=== PATIENT | female | born 1950 | race Caucasian/White ===

== ENCOUNTER 2019-01-23 07:18 | Day surgery (SDC) | payer OTHER ==
[2019-01-22 09:03] VITALS: BMI 36.3
--- NOTE | 2019-01-23 08:01 | HP ---
[facility] - Chief Complaint Chief Complaint: R KNEE PAIN History Source: Patient - Past Medical History Allergies/Adverse Reactions: Allergies Allergy/AdvReac Type Severity Reaction Status Date / Time levothyroxine Allergy "throat Verified 01/23/19 07:51 closes" - Current Medications Current Medications: Home Medications Medication Instructions Recorded Gabapentin 1,800 mg PO BID 01/22/19 Levothyroxine [Synthroid -] 125 mcg PO DAILY 01/22/19 [facility] Physical Exam - Physical Examination Vital Signs: Vital Signs Period Temp Pulse Resp BP Sys/Alberto Pulse Ox Last 24 Hr 98.1 F 65 18 168/93 96 Extremities: Other (+ R KNEE JOINT LINE TENDERNESS) [facility] Impression/Plan - Impression/Plan Impression: INTERNAL DERRANGEMENT R KNEE Operative Procedure: ARTHROSCOPY R KNEE Date to be Performed: 01/23/19
[2019-01-23] MEDS ORDERED: LIDOCAINE 1%-EPI 1:100,000 30 ML MDV IJ ONE (08:18)
[2019-01-23] MEDS ORDERED: PROPOFOL 20 ML ONE (08:55)
[2019-01-23] MEDS ORDERED: KETOROLAC TROMETHAMINE 30 MG/1 ML VIAL ONE (09:12)
[2019-01-23] MEDS ORDERED: DEXAMETHASONE SOD PHOSPHATE 4 MG/1 ML VIAL ONE (09:12)
[2019-01-23] MEDS ORDERED: LIDOCAINE 1%/EPI 1:100000 (20 ML MULTI DOSE VIAL) IJ ONE (09:16)
[2019-01-23] MEDS ORDERED: BUPIVACAINE HCL/PF 0.5% (5 MG/ML) 30 ML VIAL IJ ONE (09:17)
--- NOTE | 2019-01-23 09:40 | OP ---
Operative Note - Note: Operative Date: 01/23/19 Pre-Operative Diagnosis: internal dreangemnt right knee Operation: right knee arthroscopy with excision of loose bodies and chondroplasty [facility] [place] Post-Operative Diagnosis: Same as Pre-op Anesthesia: General Estimated Blood Loss (mls): 0 Operative Report Dictated: Yes
[2019-01-23] MEDS ORDERED: ACETAMINOPHEN INJECTION 100 ML IVPB ONE (09:45)
[2019-01-23] MEDS ORDERED: oxyCODONE HCL 5 MG TABLET ONE ×2 (10:17→11:59)
--- NOTE | 2019-01-23 10:17 | OP ---
DATE OF OPERATION: 01/23/2019 PREOPERATIVE DIAGNOSIS: Internal derangement, right knee, possible loose bodies. . POSTOPERATIVE DIAGNOSIS: Internal derangement, right knee, possible loose bodies. PROCEDURE: Arthroscopy, right knee, with excision of loose bodies and chondroplasty, medial femoral condyle. SURGICAL ATTENDING: Primo Etienne MD ANESTHESIA: LMA. CLOSURE: 4-0 nylon. COMPLICATIONS: None. CONDITION: To recovery room in stable condition. DESCRIPTION OF OPERATIVE PROCEDURE: The patient was taken to the operating room on January 23, 2019. General anesthesia with LMA was administered by the anesthesiologist. Right lower extremity was prepped and draped in the usual sterile fashion. The medial and lateral infrapatellar portal sites were infiltrated with 1% Xylocaine with epinephrine. The superolateral portal was made with a 15 blade followed by a blunt trocar. The scope was placed up in the suprapatellar pouch. The knee was then inflated with a cocktail of 10 mL of 1% Xylocaine, 10 mL of 0.5% Marcaine, and 20 mL of arthroscopic saline. After allowing the anesthetic to work on the knee, the procedure was performed. The pouch was visualized to be clean. The medial and lateral gutters were visualized to be clean. The undersurfaces of the patella and trochlea were found to be intact except for a slight central lesion in the trochlea, and it was cartilage that was debrided using the shaver. With valgus stress on the knee, the medial compartment was entered and medial meniscus was visualized and probed and found to be intact. There was a large chondral flap that was hanging on by a thread with no underlying bone extending from 0 to about 45 degrees of flexion. This was flapped over into the anterior aspect of the knee. This was debrided in pieces with a grasper at the inferomedial portal. Its rim was debrided using the shaver debriding away any loose articular cartilage or bone. The medial tibial plateau itself was quite good. At 90 degrees, ACL was visualized, probed, and found to be intact. In the figure-of-4 position, the lateral compartment was entered. Lateral meniscus was visualized, probed, and found to be intact. The lateral femoral condyle was run and found to be intact as was the lateral tibial plateau. The knee was irrigated with copious amounts of irrigation. The portals were closed using 4-0 nylon. Prior to closure, 20 mL of 0.5% Marcaine was introduced through the outflow portal prior to pulling the trocar. Sterile pressure dressing was placed over the knee. Patient was awakened from anesthesia and transferred to recovery room in stable condition. No complications. Estimated blood loss was negligible. PRIMO ETIENNE M.D. MORAIMA/[id number]
[2019-01-23] MEDS ORDERED: ACETAMINOPHEN 1000 MG/100 ML VIAL (NON FORMULARY) IVPB ONE (10:30)
[2019-01-23] MEDS ORDERED: ACETAMINOPHEN 325 MG TABLET (FP) PO PRN (10:41)
[2019-01-23] MEDS ORDERED: oxyCODONE HCL 5 MG TABLET PO PRN (10:41)
[2019-01-23] MEDS ORDERED: ONDANSETRON 4 MG/2 ML VIAL IVPUSH PRN (10:41)
[2019-01-23] MEDS ORDERED: LACTATED RINGERS SOLUTION 1,000 ML IV SCH (10:45)
[2019-01-23 10:55] VITALS: TEMP 97.8
[2019-01-23 13:38] VITALS: BP 145/90; PULSE 62
--- NOTE | 2019-01-26 17:43 | PATH ---
Surgical Pathology Report Patient Name: NONA ISABEL [facility]. Rec. #: [id number] /Age/Gender: 1950 (Age: 68) / F Account: [id number] Location: [facility] SURGICAL Taken: 01/23/2019 Received: 01/23/2019 Reported: 01/26/2019 Physicians: Primo Etienne M.D. Specimen(s) Received RIGHT KNEE SHAVINGS Clinical History Tear right knee Final Diagnosis KNEE SHAVINGS, RIGHT, ARTHROSCOPY: FRAGMENTS OF CARTILAGE, BONE, DENSE FIBROCONNECTIVE TISSUE, ADIPOSE TISSUE, AND REACTIVE SYNOVIUM. Electronically Signed Maral Malik M.D. Gross Description Received in formalin, labeled "right knee shavings," is a 4.5 x 4.0 x 0.4 cm. aggregate of augustine-yellow soft tissue fragments. A shipping services sales representative portion is submitted in one cassette. /01/23/2019 saudi01/23/2019
== END 2019-01-23 13:05 | disposition home or self-care (01) ==
LOC: JASU-SURG 07:18
PROVIDERS: ATTEND Orthopaedic Surgery
PROC: 0SBC4ZZ Excision of Right Knee Joint, Percutaneous Endoscopic Approach (ICD-10-PCS; 2019-01-23)
PROC: 0SCC4ZZ Extirpation of Matter from Right Knee Joint, Percutaneous Endoscopic Approach (ICD-10-PCS; principal; 2019-01-23 08:45)
DX: M23.41 Loose body in knee, right knee (principal)
CPT/HCPCS: 88304-TC; 94760; J0131